=== PATIENT | male | born 1990 | race Caucasian/White ===

== ENCOUNTER 2018-03-09 12:36 | Emergency (ER) | payer OTHER, SELFPAY ==
[2018-03-09 12:36] VITALS: BP 147/91; PULSE 96; RESP 16; TEMP 36.8; O2SAT 99; BMI 24.3
--- NOTE | 2018-03-09 14:05 | RAD_ITS ---
STUDY: X-RAY - RIGHT HAND REASON FOR EXAM: Laceration between the second and third digits. TECHNIQUE: 3 view(s) of the hand. COMPARISON: None. FINDINGS: Normal radiocarpal articulation. Normal distal radioulnar joint. Normal visualized carpal bones. Normal carpal articulations Normal carpometacarpal articulation of the thumb. Normal second through fifth carpometacarpal joints. Normal metacarpi. Normal metacarpophalangeal joint of the thumb. Normal interphalangeal joint of the thumb. Normal proximal and distal phalanges of the thumb. Normal metacarpophalangeal joints of the second through fifth fingers. Normal proximal and distal interphalangeal joints of the second through fifth fingers. Normal phalanges of the second through fifth fingers. There is no radiopaque foreign body. RAD/Hand Min 3 Views IMPRESSION: Normal x-ray examination of the right hand. Electronically Signed: Oliver Gonzalez MD at 15:00 EST Tel , Service support ,
[2018-03-09] MEDS: Diphth,Pertuss(Acell),Tet Vac 0.5 ML Vial IM (15:35)
--- NOTE | 2018-03-09 15:46 | ED.VISSUMM ---
- ER Visit Summary Date of Service: 03/09/18 Chief Complaint: Laceration History of Present Illness: The patient is a 28 M who is left-hand dominant. 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 He is unsure of his tetanus status. No other complaints. Physical Examination: Patient has a avulsion type injury to the ulnar side of his right thumb, just overlying the IP joint. The joint appears to be intact. Good range of motion. He also has a 3 cm laceration proximal to this avulsion that extends into the webbing space of his thumb. Underlying structures appear to be intact. He is neurovascular intact distally. Normal sensation. Test Results: X-rays negative. Emergency Department Course and Treatment: The patient's tetanus was updated. The avulsion type injury was cleaned and dressed with Gelfoam. He tolerated this well, and bleeding stopped. The proximal laceration was anesthetized with lidocaine. Irrigated and explored. Closed with 8 simple interrupted sutures. Dressing applied. [facility] Return right away for signs of infection or other problems. I also covered him with Keflex for prophylaxis Treatment Plan: As above Disposition: Discharge Impression: 1. Right thumb lacerations 1 cm and 3 cm This note was generated with [employer] dictation software. It may contain incorrect words, spelling, and punctuation that were not noted in review of the chart prior to signing ED Disposition - Plan for ED Patient: Chief Complaint: Laceration Referrals: Care Physician,No Primary [Primary Care Provider] -
--- NOTE | 2018-03-09 15:49 | ED.DCSUM_ITS ---
- ER Visit Summary Date of Service: 03/09/18 Chief Complaint: Laceration History of Present Illness: The patient is a 28 M who is left-hand dominant. 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 He is unsure of his tetanus status. No other complaints. Physical Examination: Patient has a avulsion type injury to the ulnar side of his right thumb, just overlying the IP joint. The joint appears to be intact. Good range of motion. He also has a 3 cm laceration proximal to this avulsion that extends into the webbing space of his thumb. Underlying structures appear to be intact. He is neurovascular intact distally. Normal sensation. Test Results: X-rays negative. Emergency Department Course and Treatment: The patient's tetanus was updated. The avulsion type injury was cleaned and dressed with Gelfoam. He tolerated this well, and bleeding stopped. The proximal laceration was anesthetized with lidocaine. Irrigated and explored. Closed with 8 simple interrupted sutures. Dressing applied. [facility]. Return right away for signs of infection or other problems. I also covered him with Keflex for prophylaxis Treatment Plan: As above Disposition: Discharge Impression: 1. Right thumb lacerations 1 cm and 3 cm This note was generated with [employer] dictation software. It may contain incorrect words, spelling, and punctuation that were not noted in review of the chart prior to signing ED Disposition - Plan for ED Patient: Chief Complaint: Laceration Referrals: Care Physician,No Primary [Primary Care Provider] -
--- NOTE | 2018-03-09 15:49 | ED.DEP ---
ED Disposition - Plan for ED Patient: Chief Complaint: Laceration Instructions: ED Laceration Hand Prescriptions: Cephalexin [Keflex] 500 mg PO Q6 #20 cap Referrals: [facility] [GROUP OF PHYSICIANS] -
[2018-03-09 15:58] VITALS: BP 124/77; PULSE 62; RESP 15; O2SAT 98
--- OUTSIDE RECORDS SUMMARY | 2018-06-13 04:49 | XMS RPT_ITS ---
:1990 Author Organization OHIP Care Team Providers Name Role Phone BernardIan cuba Attending Unavailable Primay Care Physicia, No Primary Care Unavailable Julio Mari Attending Unavailable [facility] Physicia, No Referring Unavailable Julio Mari Attending Unavailable [facility] Physicia, No Referring Unavailable Julio Mari Attending Unavailable [facility] Physicia, No Referring Unavailable Julio Mari Attending Unavailable [facility] Physicia, No Referring Unavailable PROBLEMS PROBLEMS DATE TYPE CONDITION / CODE ATTENDING STATUS SOURCE 03/30/2018 Unknown S61.011A - Julio Mari Active [facility] without foreign Hospital body of right Repository thumb without damage to nail, initial encounter / S61.011A(ICD-10) PROCEDURES PROCEDURES No Procedure Records FoundRESULTS RESULTS URGENT CARE VISIT Observed: 04/12/2018 Status: F Source: [place] REPORT 5:14 PM [facility] [place] [facility] [address] [place] [address] [address] [place] [address] OFFICE VISIT Date of Service: 04/12/18 MR#: [id number] Acct: [id number] Name: GET CORDERO Rep #: [id number] : 1990 Provider: Julio OSORIO Age/Sex: 28/M Location: [facility] Status: Signed Intake Vital Signs04/12/18 Height 5 ft 7 in 04/12/18 Weight: 155 lb 04/12/18 Body Mass Index (BMI) 24.3 04/12/18 Blood Pressure 116/72 Intake Visit Reasons: FINGER LACERATION Chief Complaint: Right thumb laceration recheck Test Driller Required: No Accompanied by: other Is patient in pain?: No Allergies No Known Allergies Allergy (Verified 04/12/18 17:04) Medications NK 03/29/18 [History Confirmed 04/12/18] PFS Social History Smoking Status: Never smoker HPI HPI Chief Complaint: Right thumb laceration recheck Details: GET CORDERO, is a 28 M who presents to the office today for recheck right thumb laceration. He notes continued improvement with nearly full granulation of laceration site. He still notes continued mild/moderate aching tenderness particularly at the right thumb MCPJ range of motion and discomfort continues to improve as he has been compliant with home range of motion exercises as previously instructed. He notes that he still has limitations in full extension at the same joint when compared to his left thumb MCPJ but overall is very happy with his progress. He notes no other associated symptoms and no other alleviating or aggravating factors. ROS Const Constitutional: No other (ROS negative x10 other than as noted above) Exam Const General: cooperative, healthy appearing, no acute distress, comfortable Nutritional Appearance: average body habitus Orientation: alert, awake, oriented x3 Skin General: no rashes or lesions noted Trauma: laceration (With nearly complete granulation) Neuro General: alert, awake, oriented x3, gait normal Cognition: normal cognition Speech: speech normal Gait: normal gait Motor: muscle tone normal throughout Sensory Exam: no sensory deficits noted Extrem General: normal capillary refill, no joint enlargement, normal exam except as noted (less than full extension at R thumb MCPJ w/ trace dorsal swelling to same) Psych Appearance: grossly normal Mental Status: mental status grossly normal Mood: congruent mood Affect: normal affect Speech and Movement: speech and movement normal Attitude: cooperative Thought Process: normal Thought Content: normal Judgment: judgment good Assessment AND Plan Problems 1. Laceration of right thumb S61.011A Plan Updated [employer]-14 allowing patient to return to work without restrictions at this time. Continue home range of motion exercises as previously instructed for an additional 2-3 months. Anticipated MMI in approximately 3 months, or 07/11/18. Follow-up with the now clinic on an as-needed basis only should symptoms not completely resolve or any other concerns develop. Patient states acknowledging understanding all the above. This note was generated with Printland dictation software. It may contain incorrect words, spelling, and punctuation that were not noted in checking the note before signing. Coding Level of Care Code Off vis,est,level 2 Diagnoses Laceration of right thumb S61.011A 04/12/18 1714 <Electronically signed by Julio OSORIO> Date Julio OSORIO Cosigner Signature: Date (if applicable) CC: URGENT CARE VISIT Observed: 03/29/2018 Status: F Source: [place] REPORT 5:22 PM [facility] [place] [facility] [address] [place] [address] [address] [place] [address] OFFICE VISIT Date of Service: 03/29/18 MR#: [id number] Acct: [id number] Name: GET CORDERO Rep #: [id number] : 1990 Provider: Julio OSORIO Age/Sex: 28/M Location: [facility] Status: Signed Intake Vital Signs01/03/19 Body Mass Index (BMI) 24.3 03/29/18 Height 5 ft 7 in 03/29/18 Weight: 155 lb 03/29/18 Body Mass Index (BMI) 24.3 03/29/18 Blood Pressure 122/70 H 03/29/18 Respiratory Rate 12 Intake Visit Reasons: FINGER LACERATION Chief Complaint: Right thumb laceration recheck Test Driller Required: No Is patient in pain?: No Allergies No Known Allergies Allergy (Verified 03/29/18 17:14) Medications NK 03/29/18 [History Confirmed 03/29/18] [facility] Social History Smoking Status: Never smoker HPI HPI Chief Complaint: Right thumb laceration recheck Details: GET CORDERO, is a 28 M who presents to the office today for recheck right thumb laceration. Patient notes continued compliance with wound care as previously instructed, stating he has been working on his normal duties and keeping his wound covered at work at all times. He notes localized tenderness continues to improve and notes no loss of sensation strength or function distal to the injury sites. ROS Const Constitutional: No other (ROS negative x10 other than as noted above) Exam Const General: cooperative, healthy appearing, no acute distress, comfortable Nutritional Appearance: average body habitus Orientation: alert, awake, oriented x3 Skin General: no rashes or lesions noted Trauma: laceration (Appropriate granulation w/o compromise appreciated to R thumb site) Neuro General: alert, awake, oriented x3, gait normal Cognition: normal cognition Speech: speech normal Gait: normal gait Motor: muscle tone normal throughout Sensory Exam: no sensory deficits noted Extrem General: normal to inspection Psych Appearance: grossly normal Mental Status: mental status grossly normal Mood: congruent mood Affect: normal affect Speech and Movement: speech and movement normal Attitude: cooperative Thought Process: normal Thought Content: normal Judgment: judgment good Assessment AND Plan Problems 1. Laceration of right thumb S61.011A Plan See work restrictions on updated [employer] 14 from today. Twice daily wound care as previously instructed. Follow-up with the now clinic in 2 weeks for reevaluation, sooner should symptoms worsen or any other concerns develop. Patient states acknowledging understanding all the above. This note was generated with CapableBitsation software. It may contain incorrect words, spelling, and punctuation that were not noted in checking the note before signing. Coding Level of Care Code Off vis,est,level 2 Diagnoses Laceration of right thumb S61.011A 03/29/18 4382 <Electronically signed by Julio OSORIO> Date Julio OSORIO Cosigner Signature: Date (if applicable) CC: URGENT CARE VISIT Observed: 03/22/2018 Status: F Source: [place] REPORT 5:46 PM [facility] [place] [facility] [address] [place] [address] OFFICE VISIT Date of Service: 03/22/18 MR#: [id number] Acct: [id number] Name: GET CORDERO Rep #: [id number] : 1990 Provider: Julio OSORIO Age/Sex: 28/M Location: [facility] Status: Signed Intake Vital Signs03/22/18 Body Mass Index (BMI) 24.3 03/22/18 Height 5 ft 7 in 03/22/18 Weight: 155 lb 03/22/18 Body Mass Index (BMI) 24.3 03/22/18 Blood Pressure 114/78 Intake Visit Reasons: WORK COMP / RT HAND F/U Chief Complaint: Right thumb laceration recheck Test Driller Required: No Accompanied by: OTHER Is patient in pain?: No Allergies No Known Allergies Allergy (Verified 03/22/18 17:14) PFSH Social History Smoking Status: Never smoker HPI HPI Chief Complaint: Right thumb laceration recheck Details: GET CORDERO, is a 28 M who presents to the office today for recheck right thumb laceration. Patient notes slight decrease in discomfort with increased range of motion to the same. Patient notes positive compliance with cephalexin as prescribed, as well as wound care as previously instructed. He has been working within the work restrictions without difficulty. He notes pain is aggravated to touch and with range of motion of the same alleviated with rest and keeping wound site covered. He notes no loss of sensation or function distal to the injury site. He notes no other associated symptoms no other alleviating or aggravating factors. ROS Const Constitutional: No other (ROS negative x10 other than as noted above) Exam Const General: cooperative, healthy appearing, no acute distress Nutritional Appearance: average body habitus Orientation: alert, awake, oriented x3 Skin General: no rashes or lesions noted Other: X8 simple interrupted sutures removed from right thumb laceration site. All other affected sites with appropriate granulation appreciated without signs of infection. After simple interrupted sutures were removed bacitracin ointment applied to open wound sites and redressed with dressing and Covan. Patient tolerated procedure well negative FDS FDP right thumb with full active range of motion though guarded to the IPJ and MCP J of the same. Neuro General: alert, awake, oriented x3, gait normal Cognition: normal cognition Speech: speech normal Gait: normal gait Motor: muscle tone normal throughout Sensory Exam: no sensory deficits noted Extrem General: normal to inspection Psych Appearance: grossly normal Mental Status: mental status grossly normal Mood: congruent mood Affect: normal affect Speech and Movement: speech and movement normal Attitude: cooperative Thought Process: normal Thought Content: normal Judgment: judgment good Assessment AND Plan Problems 1. Laceration of right thumb S61.011A Plan See essentially unchanged return to work restrictions on today's [employer] 14. Continue twice daily wound care as previously instructed. Follow-up with the now clinic in 1 week for reevaluation, sooner should symptoms worsen or any other concerns develop. Patient states acknowledging understanding all the above. This note was generated with Printland dictation software. It may contain incorrect words, spelling, and punctuation that were not noted in checking the note before signing. Coding Level of Care Code Off vis,est,level 3 Diagnoses Laceration of right thumb S61.011A 03/22/18 3086 <Electronically signed by Julio OSORIO> Date Julio OSORIO Cosigner Signature: Date (if applicable) CC: URGENT CARE VISIT Observed: 03/12/2018 Status: F Source: [place] REPORT 5:41 PM [facility] [address] [place] [address] 6 [place] [address] OFFICE VISIT Date of Service: 03/12/18 MR#: [id number] Acct: [id number] Name: GET CORDERO Rep #: [id number] : 1990 Provider: Julio OSORIO Age/Sex: 28/M Location: [facility] Status: Signed Intake Vital Signs03/12/18 Body Mass Index (BMI) 24.3 03/12/18 Height 5 ft 7 in 03/12/18 Weight: 155 lb 03/12/18 Body Mass Index (BMI) 24.3 03/12/18 Blood Pressure 138/82 H Intake Visit Reasons: ED FOLLOW Chief Complaint: Right thumb laceration recheck Allergies No Known Allergies Allergy (Verified 03/09/18 12:43) Medications Cephalexin [Keflex] 500 mg PO Q6 #20 cap 03/09/18 [Rx] PFSH Social History Smoking Status: Never smoker HPI HPI Chief Complaint: Right thumb laceration recheck Details: GET CORDERO, is a 28 M who presents to the office today for recheck right thumb laceration which occurred at work on 03/09/2018 patient so states. Patient notes while at work while cutting product the knife slipped cutting the dorsal aspect of his right thumb at the IPJ and distal phalanx. Patient reported to ED same day where Tdap was updated and then proximal wound closed with time 9 simple interrupted sutures distal wound closed with Gelfoam. Patient notes positive compliance with Keflex as prescribed in the ED on date of injury noting no loss of sensation strength or function at the site or distal though does admit he does have moderate discomfort to the same. Patient notes he is very anxious when looking at his own wounds. He notes no other associated symptoms no other alleviating or aggravating factors. He is left-hand dominant. ROS Const Constitutional: No other (ROS negative x10 other than as noted above) Exam Const General: cooperative, healthy appearing, no acute distress, comfortable, anxious Nutritional Appearance: average body habitus Orientation: alert, awake, oriented x3 Chest Chest palpation AND inspection: normal inspection of the chest Resp Effort AND Inspection: normal respiratory effort, able to speak in complete sentences, symmetric chest movement Cardio Rate: regular rate Pulses: radial pulses present Skin General: no rashes or lesions noted Trauma: laceration (Both sites well approximated w/o signs of infection/compromise (see HPI)) Neuro General: alert, awake, oriented x3, gait normal Cognition: normal cognition Speech: speech normal Gait: normal gait Motor: muscle tone normal throughout Sensory Exam: no sensory deficits noted Extrem General: normal to inspection Psych Appearance: grossly normal Mental Status: mental status grossly normal Mood: congruent mood Affect: normal affect Speech and Movement: speech and movement normal Attitude: cooperative Thought Process: normal Thought Content: normal Judgment: judgment good Assessment AND Plan Problems 1. Laceration of right thumb S61.011A Plan No use right hand keeping wound site covered at work at all times. Continue Keflex as previously prescribed. Follow-up with the now clinic in 10 days for reevaluation, sooner should symptoms worsen or any other concerns develop. Patient states acknowledging understanding all the above. This note was generated with Printland dictation software. It may contain incorrect words, spelling, and punctuation that were not noted in checking the note before signing. Coding Level of Care Code Off vis,new,level 3 Diagnoses Laceration of right thumb S61.011A 03/12/18 1741 <Electronically signed by Julio OSORIO> Date Julio OSORIO Cosigner Signature: Date (if applicable) CC: EMERGENCY DEPARTMENT Observed: 03/09/2018 Status: F Source: [place] SUMMARY 4:14 PM [facility] [place] Medical Records Department [address] [facility] [place] [address] Emergency Department Summary 03/09/18 1546 MR#: [id number] Acct: [id number] Name: GET CORDERO Rep #: [id number] : 1990 28 From: Ian Wagner MD PCP: Care Physician, No Primary Status: DEP ER - ER Visit Summary Date of Service: 03/09/18 Chief Complaint: Laceration History of Present Illness: The patient is a 28 M who is left- hand dominant. 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 He is unsure of his tetanus status. No other complaints. Physical Examination: Patient has a avulsion type injury to the ulnar side of his right thumb, just overlying the IP joint. The joint appears to be intact. Good range of motion. He also has a 3 cm laceration proximal to this avulsion that extends into the webbing space of his thumb. Underlying structures appear to be intact. He is neurovascular intact distally. Normal sensation. Test Results: X-rays negative. Emergency Department Course and Treatment: The patient's tetanus was updated. The avulsion type injury was cleaned and dressed with Gelfoam. He tolerated this well, and bleeding stopped. The proximal laceration was anesthetized with lidocaine. Irrigated and explored. Closed with 8 simple interrupted sutures. Dressing applied. [facility] Return right away for signs of infection or other problems. I also covered him with Keflex for prophylaxis Treatment Plan: As above Disposition: Discharge Impression: 1. Right thumb lacerations 1 cm and 3 cm This note was generated with Printland dictation software. It may contain incorrect words, spelling, and punctuation that were not noted in review of the chart prior to signing ED Disposition - Plan for ED Patient: Chief Complaint: Laceration Referrals: Care Physician,No Primary [Primary Care Provider] - What to do if you have Problems For any increased pain, shortness of breath, bleeding, nausea or vomiting, chest pain, or any unexpected problems, contact your Primary Care Provider. Call [facility] ([phone]) or report to the closest Emergency Room. Call 911 if necessary. 03/09/18 5249 <Electronically signed by Ian Wagner MD> Date Ian Wagner MD Cosigner Signature (If Indicated): Date CC: No Primary Care Physician DISCHARGE INSTRUCTION Observed: 03/09/2018 Status: F Source: [place] 4:14 PM [facility] Medical Records Department [address] [place] [address] Discharge Instruction 03/09/18 1549 MR#: [id number] Acct: [id number] Name: GET CORDERO Rep #: [id number] : 1990 28 From: Ian Wagner MD PCP: Care Physician, No Primary Status: DEP ER ED Disposition - Plan for ED Patient: Chief Complaint: Laceration Instructions: ED Laceration Hand Prescriptions: Cephalexin [Keflex] 500 mg PO Q6 #20 cap Referrals: [facility] [GROUP OF PHYSICIANS] - What to do if you have Problems For any increased pain, shortness of breath, bleeding, nausea or vomiting, chest pain, or any unexpected problems, contact your Primary Care Provider. Call [facility] ([phone]) or report to the closest Emergency Room. Call 911 if necessary. 03/09/18 3504 <Electronically signed by Ian Wagner MD> Date Ian Wagner MD Cosigner Signature (If Indicated): Date CC: No Primary Care Physician HAND MIN 3 VIEWS Observed: 03/09/2018 Status: F Source: [place] 1:38 PM [facility] Imaging Services [address] [place] [address] Hand Min 3 Views MR#: [id number] Acct: [id number] Name: GET CORDERO Rep #: [id number] : 1990 M 28 From: Oliver Gonzalez MD PCP: Care Physician, No Primary Status: REG ER Study: Hand Min 3 Views Date of Exam: 03/09/18 Exam# [id number] Ordering Dr: Ian Wagner MD STUDY: X-RAY - RIGHT HAND REASON FOR EXAM: Laceration between the second and third digits. TECHNIQUE: 3 view(s) of the hand. COMPARISON: None. FINDINGS: Normal radiocarpal articulation. Normal distal radioulnar joint. Normal visualized carpal bones. Normal carpal articulations Normal carpometacarpal articulation of the thumb. Normal second through fifth carpometacarpal joints. Normal metacarpi. Normal metacarpophalangeal joint of the thumb. Normal interphalangeal joint of the thumb. Normal proximal and distal phalanges of the thumb. Normal metacarpophalangeal joints of the second through fifth fingers. Normal proximal and distal interphalangeal joints of the second through fifth fingers. Normal phalanges of the second through fifth fingers. There is no radiopaque foreign body. RAD/Hand Min 3 Views IMPRESSION: Normal x-ray examination of the right hand. Electronically Signed: Oliver Gonzalez MD at 15:00 EST Tel , Service support , CC: No Primary Care Physician; Ian Wagner MD Fire Services Plumber: Signed ALLERGIES ALLERGIES DATE TYPE / CODE NAME / CODE REACTION SEVERITY SOURCE 04/12/2018 Drug No Known Unknown [facility] Allergy/4160 Allergies/F00 [facility] 17141(SNOMED 8350896(RXNOR Repository CT) M) ENCOUNTERS ENCOUNTERS ADMIT/DISCHARGE ACCOUNT ADMITTING ENCOUNTER LOCATION SOURCE NUMBER CLASS 04/12/2018/ [id number] Ambulatory BMSBuilding:B [place] [address] [facility] Repository 03/29/2018/ [id number] Ambulatory BMSBuilding:[facility] [place] 9 0 [place] [place] 03/22/2018/ [id number] Ambulatory BMSBuilding:[place] 8 8 [place] [place] 03/12/2018/ [id number] Ambulatory BMSBuilding:B [place] [address] [facility] Repository 03/09/2018/ [id number] Emergency Levi Levi 8 6 [facility] Hospital ing:ED Repository PAYERS PAYERS ENCOUNTER GUARANTOR PAYER SUBSCRIBER SOURCE 04/12/2018 CHRISTOPHER R Primary CHRISTOPHER R Levi [id number] Insurance:OB POWELLDOB: [facility] [id number] Number: Repository [address]Zml: [phone] [phone] () Date:0138-22-18AB [facility] [id number] [address]PN: 04/12/2018 Secondary NOT GIVENUNK [place] Insurance:SELF PAY [facility] Number: Effective Repository Date:2018-04-12 03/29/2018 CHRISTOPHER R Primary CHRISTOPHER R [place] [id number] Insurance[facility] [id number] Number: Repository [id number]: [phone] [phone] () Date:4592-56-14[address], [place] [address]XO: 03/29/2018 Secondary NOT GIVENUNK Levi Insurance:SELF PAY [facility] Number: Effective Repository Date:2018-03-29 03/22/2018 CHRISTOPHER R Primary CHRISTOPHER R [place] [id number] Insurance:[facility]: [facility] [id number] Number: Repository [address]Jdu: [phone] [phone] () Date:3804-50-99[address], [place] [address]ME: 03/22/2018 Secondary NOT GIVENUNK Levi Insurance:SELF PAY [facility] Number: Effective Repository Date:2018-03-22 03/12/2018 CHRISTOPHER R Primary NOT GIVENUNK Levi [id number] Insurance:SELF PAY [address] Number: Effective Repository [id number]: (123) Date:2018-03-12 [phone] () 03/09/2018 CHRISTOPHER R Primary CHRISTOPHER R [place] [id number] Insurance:OB POWELLDOB: [facility] [id number] Number: Repository [id number]: [phone] [id number] [phone] () Date:5831-47-28[address], [place] [address]AN: 03/09/2018 Secondary NOT GIVENUNK Levi Insurance:SELF PAY [facility] Number: Effective Repository Date:2018-03-09
== END 2018-03-09 16:00 | disposition home or self-care (01) ==
LOC: ED 14:00
PROVIDERS: Emergency Provider Emergency Medicine
DX: S61.011A Laceration without foreign body of right thumb without damage to nail, initial encounter (principal); W26.8XXA Contact with other sharp object(s), not elsewhere classified, initial encounter; Y93.9 Activity, unspecified; Y92.9 Unspecified place or not applicable; Y99.9 Unspecified external cause status; Z23 Encounter for immunization
CPT/HCPCS: 12002; 73130; 90471; 90715; 99283